=== PATIENT | male | born 1985 | race African-American/Black ===

== ENCOUNTER 2021-03-24 12:07 | Emergency (ER) | payer OTHER ==
[2021-03-24 12:17] VITALS: BP 163/98; PULSE 91; TEMP 98.5; BMI 30.2
[2021-03-24] MEDS ORDERED: LIDOCAINE 5% TOPICAL PATCH TP ONE (12:35)
[2021-03-24] MEDS ORDERED: LIDOCAINE 5% TOPICAL PATCH ONE ×2 (12:45→12:47)
== END 2021-03-24 12:57 | disposition home or self-care (01) ==
LOC: JERFT 12:07
DX: B02.9 Zoster without complications (principal)
CPT/HCPCS: 99283-25